=== PATIENT | male | born 1955 | race Caucasian/White ===

== ENCOUNTER 2016-08-03 17:02 | Emergency (ER) | payer BC ==
[2016-08-03 17:40] VITALS: BP 128/70
--- NOTE | 2016-08-03 17:51 | EDM.PDOC ---
ED HPI GENERAL MEDICAL PROBLEM - General Chief Complaint: Chest Pain Time Seen by Provider: 08/03/16 17:05 Source of Information: Reports: Patient History Limitations: Reports: No Limitations - History of Present Illness INITIAL COMMENTS - FREE TEXT/NARRATIVE: According to patient he claims that he has had left sided chest pain since last week end. He claims he had a coughing spell over weekend, but he is not sure if that cause any damage. He claims that he gets a dull achy constant pain over the left side of the chest at night. Only happens when he lyes down. But does not bother if he stands up.The pain is at a particular point over the left chest. rates at 1-2 /10. does not hurt now.It does not occur when he is exerting. Not asso with cough, wheezing, nausea, vomiting, shortness or breath or sweating. he did go to [facility] and was advised to go to emergency room. No fever or chills. Location: Reports: Chest Quality: Reports: Ache Severity: Mild Improves with: Reports: None Worsens with: Reports: None Associated Symptoms: Denies: Confusion, Cough, Diaphoresis, Fever/Chills, Headaches, Loss of Appetite, Nausea/Vomiting, Rash, Seizure, Shortness of Breath , Weakness Left Chest Pain Score (Numeric/FACES): 2 - Related Data Allergies Allergy/AdvReac Type Severity Reaction Status Date / Time No Known Allergies Allergy Verified 08/03/16 17:29 Home Meds: Home Meds Aspirin [Ecotrin] 325 mg PO DAILY 08/03/16 [History] atorvaSTATin Calcium [Atorvastatin Calcium] 10 mg PO DAILY 08/03/16 [History] metFORMIN HCl [Metformin HCl] 1,500 mg PO DAILY 08/03/16 [History] ED ROS GENERAL - Review of Systems Review Of Systems: See Below Constitutional: Denies: Fever, Chills HEENT: Denies: Ear Discharge, Ear Pain, Hearing Loss, Rhinitis, Sinus Problem, Throat Pain, Throat Swelling Respiratory: Denies: Shortness of Breath, Cough, Sputum Cardiovascular: Denies: Dyspnea on Exertion, Lightheadedness GI/Abdominal: Denies: Abdominal Pain, Nausea, Vomiting : Denies: Dysuria, Flank Pain, Frequency Musculoskeletal: Denies: Shoulder Pain, Joint Pain, Joint Swelling Skin: Denies: Rash, Erythema ED EXAM, GENERAL - Physical Exam Exam: See Below Exam Limited By: No Limitations General Appearance: Alert, WD/WN, No Apparent Distress Eye Exam: Bilateral Eye: EOMI, PERRL Ears: Normal External Exam, Normal Canal, Hearing Grossly Normal, Normal TMs Ear Exam: Bilateral Ear: Auricle Normal, Canal Normal, TM normal Nose: Normal Inspection, Normal Mucosa, No Blood Throat/Mouth: Normal Inspection, Normal Lips, Normal Teeth, Normal Gums, Normal Oropharynx, Normal Voice, No Airway Compromise Head: Atraumatic, Normocephalic Neck: Normal Inspection, Supple, Non-Tender, Full Range of Motion Respiratory/Chest: No Respiratory Distress, Lungs Clear, Normal Breath Sounds, No Accessory Muscle Use, Chest Non-Tender Cardiovascular: Normal Peripheral Pulses, Regular Rate, Rhythm, No Edema, No Gallop, No JVD, No Murmur, No Rub Peripheral Pulses: 2+: Radial (L), Radial (R) GI/Abdominal: Normal Bowel Sounds, Soft, Non-Tender, No Organomegaly, No Distention, No Abnormal Bruit, No Mass Extremities: Normal Inspection, Normal Range of Motion, Non-Tender, Normal Capillary Refill, No Pedal Edema Neurological: Alert, Oriented, CN II-XII Intact, Normal Cognition, Normal Gait, Normal Reflexes, No Motor/Sensory Deficits EKG INTERPRETATION EKG Date: 08/03/16 Rhythm: NSR Rate (beats/min): 66 [place]: normal P-wave: present QRS: normal ST-T: normal QT: normal Course - Vital Signs Text/Narrative:: Pt is asymptomatic. He has just a small area of the left chest where he gets the pain when he lyes down at night. Clinical exam is normal. His EKG is in NSR with rates 66/min. Chest xray appears normal.Also her CBC is normal. HE is clinically stable. The pain might be intercostal spasm or chest wall strain. Advised to take tylenol 500mg every night for about a week. If pain still persists, advised to return , might need Stress test for further evaluation. Pt understands the plan. Last Recorded V/S: Last Vital Signs Temp 97.8 F 08/03/16 17:12 Pulse 64 08/03/16 17:35 Resp 16 08/03/16 17:35 BP 128/70 08/03/16 17:35 Pulse Ox 98 08/03/16 17:35 - Orders/Labs/Meds Orders: Active Orders 24 hr Category Date Time Status EKG Documentation Completion [RC] ASDIRECTED Care 08/03/16 17:32 Active CXR [Chest 1V Frontal] [CR] Stat Exams 08/03/16 17:31 Taken Labs: Laboratory Tests 08/03/16 Range/Units 17:25 WBC 7.0 (4.0-11.0) K/uL RBC 4.34 L (4.50-6.50) M/uL Hgb 13.5 (13.0-18.0) g/dL Hct 38.9 L (40.0-54.0) % MCV 90 (76-96) fL MCH 31.1 (27.0-32.0) pg MCHC 34.7 (31.0-35.0) g/dL RDW 13.3 (11.0-16.0) % Plt Count 265 (150-400) K/uL MPV 9.4 (6.0-10.0) fL Neut % (Auto) 50.6 (45.0-70.0) % Lymph % (Auto) 36.7 (20.0-40.0) % [place] % (Auto) 10.6 H (3.0-10.0) % Eos % (Auto) 1.7 (1.0-5.0) % Baso % (Auto) 0.4 (0.0-0.5) % Neut # (Auto) 3.54 (2.00-7.50) K/uL Lymph # (Auto) 2.57 (1.50-4.00) K/uL [place] # (Auto) 0.74 (0.20-0.80) K/uL Eos # (Auto) 0.12 (0.04-0.40) K/uL Baso # (Auto) 0.03 (0.02-0.10) K/uL Departure - Departure Time of Disposition: 18:00 Disposition: Home, Self-Care 01 Condition: fair Clinical Impression: Non-cardiac chest pain - Discharge Information Forms: ED Department Discharge Additional Instructions: Pt is asymptomatic. He has just a small area of the left chest where he gets the pain when he lyes down at night. Clinical exam is normal. His EKG is in NSR with rates 66/min. Chest xray appears normal.Also her CBC is normal. HE is clinically stable. The pain might be intercostal spasm or chest wall strain. Advised to take tylenol 500mg every night for about a week. If pain still persists, advised to return , might need Stress test for further evaluation. Pt understands the plan. - Problem List & Annotations (1) Non-cardiac chest pain SNOMED Code(s): 979037421 Code(s): R07.89 - OTHER CHEST PAIN Status: Acute Current Visit: Yes - Problem List Review Problem List Initiated/Reviewed/Updated: Yes - My Orders Last 24 Hours: My Active Orders 08/03/16 17:31 CXR [Chest 1V Frontal] [CR] Stat 08/03/16 17:32 EKG Documentation Completion [RC] ASDIRECTED - Assessment/Plan Last 24 Hours: My Active Orders 08/03/16 17:31 CXR [Chest 1V Frontal] [CR] Stat 08/03/16 17:32 EKG Documentation Completion [RC] ASDIRECTED Assessment:: Non cardiac chest pain Plan: Pt is asymptomatic. He has just a small area of the left chest where he gets the pain when he lyes down at night. Clinical exam is normal. His EKG is in NSR with rates 66/min. Chest xray appears normal.Also her CBC is normal. HE is clinically stable. The pain might be intercostal spasm or chest wall strain. Advised to take tylenol 500mg every night for about a week. If pain still persists, advised to return , might need Stress test for further evaluation. Pt understands the plan.
--- NOTE | 2016-08-08 10:08 | CR ---
DATE OF SERVICE: 08/03/2016 CLINICAL DATEA: CHEST PAIN Portable chest: No priors. The heart size is normal. The patient has taken a poor inspiration. The lungs are clear. No pneumothorax. No pleural effusions. No areas of consolidation. There is degenerative disc disease throughout the thoracic spine. Thank you for allowing us to participate in the care of your patient. JANNET
== END 2016-08-03 18:07 | disposition home or self-care (01) ==
LOC: LB.ED 17:02
DX: R07.89 Other chest pain (principal); Z79.82 Long term (current) use of aspirin
CPT/HCPCS: 36415; 71010; 85025; 93005; 99285-25

== ENCOUNTER 2020-09-10 07:54 | Day surgery (SDC) | payer BC ==
[~2020-09-10 07:54] MED LIST: Metoclopramide 10 MG/2 ML SDV IV PRN
[2020-09-10] MEDS: Sodium Chloride 0.9% 1,000 ML IV SCH (08:20)
[2020-09-10] MEDS ORDERED: Propofol 200 MG/20 ML SDV ONE (09:25)
[2020-09-10] MEDS ORDERED: Midazolam 1 MG/ML 2 ML SDV ONE (09:25)
--- NOTE | 2020-09-11 12:23 | OR ---
DATE OF OPERATION: 09/10/2020 SURGEON: Lawson Roper MD PREOPERATIVE DIAGNOSIS: Surveillance colonoscopy. POSTOPERATIVE DIAGNOSIS: Surveillance colonoscopy. PROCEDURE: Colonoscopy. ANESTHESIA: MAC. ESTIMATED BLOOD LOSS: None. COMPLICATIONS: None. INDICATION FOR THE PROCEDURE: The patient is a 65-year-old male, here today for a surveillance colonoscopy. Last colonoscopy was 11 years ago. Apparently, he had polyps at that time. Denies any change in bowel habits since then. He is here today for surveillance colonoscopy. DESCRIPTION OF PROCEDURE: Informed consent was obtained from the patient. The patient was taken to the operating room and placed on table in left lateral decubitus position. Monitored anesthesia care was administered. Colonoscope was then advanced. Digital rectal exam was performed and was normal. Colonoscope was then advanced through the anus and directed toward the cecum. Cecum was reached and identified by appendiceal orifice and ileocecal valve. Colonoscope was then slowly withdrawn. He did have some small mild diverticulosis in the sigmoid and descending colon. The colon was otherwise unremarkable. No polyps, no masses, no areas of ischemia or inflammation. Rectum was also unremarkable. He did have some grade 2 internal hemorrhoids present, which were nonbleeding. Colonoscope was then withdrawn. FINDINGS: Mild sigmoid and descending colon diverticulosis as well as internal hemorrhoids. RECOMMENDATIONS: Would recommend plenty of water, increase fiber in the diet as well as repeat colonoscopy in 10 years. TATY/BRANDON /[id number]
== END 2020-09-10 11:05 | disposition home or self-care (01) ==
LOC: LB.SDS 07:54
PROVIDERS: ATTEND Surgery
DX: Z12.11 Encounter for screening for malignant neoplasm of colon (principal); K57.30 Diverticulosis of large intestine without perforation or abscess without bleeding; K64.8 Other hemorrhoids; E11.9 Type 2 diabetes mellitus without complications; F17.200 Nicotine dependence, unspecified, uncomplicated
CPT/HCPCS: 82947; J2250; J2704; J7030

== ENCOUNTER 2022-04-13 08:56 | Observation (INO) | payer OTHER ==
[2022-04-13] MEDS ORDERED: Sodium Chloride 0.9% 10 ML Syringe FLUSH PRN (09:07)
[2022-04-13] MEDS ORDERED: Sodium Chloride 0.9% 1,000 ML IV SCH ×2 (09:10→10:10)
[2022-04-13] MEDS ORDERED: Metoprolol Tartrate 5 MG/5 ML SDV ONE (09:11)
[2022-04-13 09:48] LABS: ESTIMATED GFR 52 mL/min (>60); TROPONIN I HIGH SENSITIVITY 33.3 pg/ml (<=60.4)
[2022-04-13] MEDS ORDERED: 50% Dextrose in Water 50 ML Syringe IVPUSH PRN ×2 (10:21→11:23)
[2022-04-13] MEDS ORDERED: Insulin Regular, Human 100 Units/ML 3 ML Vial IV ONE (10:21)
[2022-04-13] MEDS ORDERED: Glucagon,Human Recombinant 1 MG Vial IM PRN ×2 (10:21→11:23)
[2022-04-13] MEDS: Sodium Chloride 0.9% 1,000 ML IV SCH (11:23)
[2022-04-13] MEDS ORDERED: Insulin Aspart 100 Units/ML 3 ML Pen SUBCUT ONE (11:23)
[2022-04-13] MEDS: Metoprolol Tartrate 25 MG Tab PO SCH ×2 (12:59→23:07)
[2022-04-13] MEDS ORDERED: Metoprolol Tartrate 25 MG Tab ONE (13:08)
[2022-04-13] MEDS ORDERED: METFORMIN 500MG TABLET PO SCH (17:00)
[2022-04-13] MEDS: Insulin Aspart 100 Units/ML 3 ML Pen SUBCUT SCH (17:13)
[2022-04-14] MEDS: Sodium Chloride 0.9% 1,000 ML IV SCH (00:03)
[2022-04-14] MEDS ORDERED: ATORVASTATIN 10MG TABLET PO SCH (08:00)
[2022-04-14] MEDS: metFORMIN 1,000 MG Tab PO SCH ×2 (08:10→16:53)
[2022-04-14] MEDS: atorvaSTATin 10 MG Tab PO SCH (08:10)
[2022-04-14] MEDS: Insulin Aspart 100 Units/ML 3 ML Pen SUBCUT SCH ×3 (08:13→17:03)
[2022-04-14] MEDS ORDERED: Insulin NPH/Insulin Regular,Human 70-30 100 Units/ML 10 ML Vial SUBCUT SCH (09:50)
[2022-04-14] MEDS: Insulin NPH/Insulin Regular,Human 70-30 100 Units/ML 3 ML Pen SQ SCH ×2 (10:26→20:33)
[2022-04-14] MEDS: Metoprolol Tartrate 25 MG Tab PO SCH ×2 (11:05→23:41)
[2022-04-15] MEDS: Insulin NPH/Insulin Regular,Human 70-30 100 Units/ML 3 ML Pen SQ SCH (08:04)
[2022-04-15] MEDS: Insulin Aspart 100 Units/ML 3 ML Pen SUBCUT SCH ×2 (08:04→12:37)
[2022-04-15] MEDS: atorvaSTATin 10 MG Tab PO SCH (08:05)
[2022-04-15] MEDS: metFORMIN 1,000 MG Tab PO SCH (08:05)
[2022-04-15] MEDS: Metoprolol Tartrate 25 MG Tab PO SCH (11:41)
[2022-04-15] MEDS ORDERED: Insulin NPH/Insulin Regular,Human 70-30 100 Units/ML 3 ML Pen SQ SCH (20:00)
== END 2022-04-15 13:20 | disposition home or self-care (01) ==
LOC: LB.ED 08:56 → LB.MS 11:21
PROVIDERS: ADMIT Surgery; ATTEND Surgery
DX: N17.9 Acute kidney failure, unspecified (principal); I48.0 Paroxysmal atrial fibrillation; E11.65 Type 2 diabetes mellitus with hyperglycemia; E86.0 Dehydration; E78.00 Pure hypercholesterolemia, unspecified; Z79.899 Other long term (current) drug therapy; Z79.84 Long term (current) use of oral hypoglycemic drugs; Z79.4 Long term (current) use of insulin; Z86.16 Personal history of COVID-19; Z87.891 Personal history of nicotine dependence; Z20.822 Contact with and (suspected) exposure to COVID-19
CPT/HCPCS: 36415; 71045; 80048; 82947; 83735; 83880; 84100; 84484; 85027; 85379; 93005; 93010; 96361; 96365; 99222; 99238; 99285-25; A9270-GY; G0378; J1815-GY; J3475; J3490; J7030; U0002

== ENCOUNTER 2024-04-21 10:03 | Emergency (ER) | payer OTHER | END 2024-04-21 11:10 | disposition home or self-care (01) | LOC: LB.ED 10:03 | DX: S00.03XA Contusion of scalp, initial encounter (principal); E78.00 Pure hypercholesterolemia, unspecified; E11.9 Type 2 diabetes mellitus without complications; Z86.16 Personal history of COVID-19; Z79.4 Long term (current) use of insulin; Z79.84 Long term (current) use of oral hypoglycemic drugs; Z79.899 Other long term (current) drug therapy; V89.2XXA Person injured in unspecified motor-vehicle accident, traffic, initial encounter; Y92.410 Unspecified street and highway as the place of occurrence of the external cause | CPT/HCPCS: 70450; 71045; 72125; 99284; A0425; A0428 ==